=== PATIENT | female | born 1985 | race Two or more races ===

== ENCOUNTER 2021-11-03 03:30 | Emergency (ER) | payer OTHER | END 2021-11-03 04:15 | disposition left against medical advice (07) | LOC: ER 03:30 | DX: M54.9 Dorsalgia, unspecified (principal); R30.0 Dysuria; Z53.21 Procedure and treatment not carried out due to patient leaving prior to being seen by health care provider ==

== ENCOUNTER 2024-11-20 20:46 | Emergency (ER) | payer OTHER, MEDICAID ==
[~2024-11-20] VITALS: Ht 157.5 cm; Wt 92.7 kg
[2024-11-20 22:27] VITALS: BP 126/93; PULSE 96; RESP 17; TEMP 98; O2SAT 95
[2024-11-20] MEDS: KETOROLAC TROMETH 60MG/2ML VIAL IM ONE (22:27)
[2024-11-20 22:40] LABS: COVID19 ANTIGEN SOFIA FIA NEGATIVE (NEGATIVE)
[2024-11-20] MEDS: ONDANSETRON ODT 4 MG TAB PO ONE (22:53)
[2024-11-20] MEDS ORDERED: PROM1SOL4 PO (22:59)
--- NOTE | 2024-11-20 22:59 | ED.PDOC ---
Eye-HPI HPI Comments PT CAME TO THE ER WITH CC OF FLU LIKE SYMPTOMS, HEADACHE, RUNNY NOSE, DIARRHEA, BONE PAIN, PT IS A&OX4 RR EVEN AND REGULAR NO DISTRESS NOTED AT THIS TIME. PT DENIES N/V CP SOB Chief Complaint: Flu like Time Seen by MD: 20:55 Reviewed Notes: Nurses Notes, Medications, Allergies Home Meds Discontinued Scripts Promethazine-Dm (Promethazine Dm 6.25-15 mg/5Ml) 1 Lillie Lillie, 5 ML PO TID PRN for 5 Days, #75 ML Prov:JUAN JOSE CASEY PAN DEVULCANIZER HELPER 11/20/24 Information Source: Patient Mode of Arrival: Ambulatory Past Medical History PAST MEDICAL HISTORY: Denies Surgical History: Denies all surgeries INTERIOR DESIGN PROGRAM CHAIR History: No Pertinent INTERIOR DESIGN PROGRAM CHAIR History Family History Family History: Unknown Social History Smoker: Non-Smoker Alcohol: Denies ETOH Use Drugs: Denies Drug Use All Other Systems: Reviewed and Negative (SEE HPI) Physical Exam General Appearance: No Apparent Distress, Normal HEENT: Pharyngeal Erythema, TMs Normal Neck: Full Range of Motion, Non-Tender Respiratory: Lungs Clear, No Respiratory Distress, Normal Breath Sounds Cardiovascular: No Edema, No JVD, No Murmur, No Gallop, Normal Peripheral Pulses, Regular Rate/Rhythm Breast Exam: Deferred Gastrointestinal: No Organomegaly, Non Tender, No Pulsatile Mass, Normal Bowel Sounds, Soft Genitalia: Deferred Pelvic: Deferred Rectal: Deferred Extremities: Normal capillary refill, Normal range of motion, Non-tender, No pedal edema Musculoskeletal : Apperance: Normal Neurologic: Alert, No Motor Deficits, Normal Affect, Normal Mood, No Sensory Deficits Cerebellar Function: Normal Reflexes: NOT DONE Skin: Dry, Normal Color, Warm Lymphatic: No Adenopathy Was a procedure done? Was a procedure done?: No EENT DIFF Eye: N/A Ear: Otitis Media, Dental, Pharyngitis Sore Throat: Peritonsillar Abscess, Peritonsillar Cellulitis, Pharyngitis, Streptococcal, Viral Pharyngitis, URI X-Ray, Labs, Meds, VS Vital Signs Date Time Temp Pulse Resp B/P (MAP) Pulse Ox O2 Delivery O2 Flow Rate FiO2 11/20/24 22:27 98.0 96 17 126/93 (104) 95 98.0 11/20/24 22:27 96 17 95 Room Air 11/20/24 20:50 98.3 92 20 132/94 95 98.3 Lab Test 11/20/24 21:23 Range/Units SARS-CoV-2 Antigen (Rapid) Negative NEGATIVE X-Ray, Labs, Meds, VS Comment COVID NEGATIVE. Time of 1ST Reevaluation: 20:55 Reevaluation 1ST: Unchanged Time of 2ND Reevaluation: 22:54 Reevaluation 2ND: Improved Patient Education/Counseling: Diagnosis, Treatment, Prognosis, Need For Follow Up Family Education/Counseling: No Family Present SEPSIS Sepsis Screen Date sepsis recognized/suspect: Nov 20, 2024 Time Sepsis recognized/suspect: 2052 Recent Procedure: No On Antibiotic Therapy: No Respiratory Rate >20: No Heart Rate >90: Yes Temp<36 C (96.8 F) or >38.3 C: No SBP <90 or MAP <65 mmHG: No New Acute Mental Status Change: No Is the patient on CPAP, BIPAP,: No Vital Signs Date Time Temp Pulse Resp B/P (MAP) Pulse Ox O2 Delivery O2 Flow Rate FiO2 11/20/24 22:27 98.0 96 17 126/93 (104) 95 98.0 11/20/24 22:27 96 17 95 Room Air 11/20/24 20:50 98.3 92 20 132/94 95 98.3 Departure 1 Departure Time of Disposition: 22:57 Impression: Primary Impression: Viral syndrome Disposition: 01 HOME / SELF CARE / HOMELESS Condition: Stable Discharged With: Self Critical Care Note Critical Care Time?: No Stability Stability form required: JUAN JOSE Nava Nov 20, 2024 22:59
== END 2024-11-20 23:13 | disposition home or self-care (01) ==
LOC: ER 20:46
DX: B34.9 Viral infection, unspecified (principal); Z20.822 Contact with and (suspected) exposure to COVID-19
CPT/HCPCS: 36415; 87426; 96372; 99283; J1885; Q0162

== ENCOUNTER 2024-12-31 00:01 | Emergency (ER) | payer OTHER, MEDICAID ==
[~2024-12-31] VITALS: Ht 157.5 cm; Wt 92.5 kg
[2024-12-31 00:59] LABS: Hematocrit 39.6 % (36.0-46.0); Hemoglobin 13.3 g/dL (12.2-16.2); Mean Corpuscular Hemoglobin 28.0 pg (28.0-32.0); Mean Corpuscular Volume 83.2 fL (80.0-100.0); Nucleated Red Blood Cells % 0.0 %
[2024-12-31 01:05] LABS: Potassium 3.8 mmol/L (3.5-5.1); Sodium 140 mmol/L (136-145)
[2024-12-31 01:06] LABS: Anion Gap 9 (5-15); Carbon Dioxide 23 mmol/L (20-31)
[2024-12-31 01:09] LABS: Calcium 8.5 mg/dL (8.7-10.4); Chloride 108 mmol/L (98-107)
[2024-12-31 01:11] LABS: BUN/Creatinine Ratio 10.8 (10.0-20.0); Glucose 99 mg/dL (74-106)
[2024-12-31 01:26] LABS: Urine Protein, UAD Negative (Negative)
[2024-12-31 01:27] LABS: Blood Urea Nitrogen 7 mg/dL (9-23)
[2024-12-31] MEDS ORDERED: HYDR-4798 PO (02:23)
[2024-12-31] MEDS ORDERED: ZOFR4T PO (02:23)
--- NOTE | 2024-12-31 02:24 | ED.PDOC ---
History of Present Illness HPI Comments This patient is a pleasant but morbidly obese 39-year-old female who arrives the ED today for evaluation of headache concerns for the past four days. Patient states that her headache came on four days ago and has been relatively consistent. Patient describes the pain as being sharp and groaning as well as experiencing some photophobia. Patient states intermittent nausea. No vomiting. Patient denies any fever. Patient denies any history of migraine headaches. Chief Complaint: Headache Time Seen by MD: 00:09 Reviewed Notes: Nurses Notes Information Source: Patient Mode of Arrival: Ambulatory Severity: Moderate Timing: Days Duration: Since onset Prehospital treatment: Pain Meds Past Medical History PAST MEDICAL HISTORY: Denies Surgical History: Denies all surgeries GLIDING PILOT INSTRUCTOR History: No Pertinent GLIDING PILOT INSTRUCTOR History Family History Family History: Unknown Social History Smoker: Non-Smoker Alcohol: Denies ETOH Use Drugs: Denies Drug Use Lives In: Home Constitutional: denies: chills, diaphoresis, fatigue, fever, malaise, sweats, weakness, others EENTM: denies: blurred vision, double vision, ear bleeding, ear discharge, ear drainage, ear pain, ear ringing, eye pain, eye redness, hearing loss, mouth pain, mouth swelling, nasal discharge, nose bleeding, nose congestion, nose pain, photophobia, tearing, throat pain, throat swelling, voice changes, others Respiratory: denies: cough, hemoptysis, orthopnea, SOB at rest, shortness of breath, SOB with excertion, stridor, wheezing, others Cardiovascular: denies: chest pain, dizzy spells, diaphoresis, Dyspnea on exertion, edema, irregular heart beat, left arm pain, lightheadedness, palpitations, PND, syncope, others Gastrointestinal: denies: abdomen distended, abdominal pain, blood streaked bowels, constipated, diarrhea, dysphagia, difficulty swallowing, hematemesis, me chuy, nausea, poor appetite, poor fluid intake, rectal bleeding, rectal pain, vomiting, others Genitourinary: denies: abnormal vagina bleeding, burning, dyspareunia, dysuria, flank pain, frequency, hematuria, incontinence, pain, , vagina discharge, urgency, others Neurological: reports: headache; denies: dizziness, fainting, left sided numbness, left sided weakness, numbness, paresthesia, pre-existing deficit, right sided numbness, right sided weakness, seizure, speech problems, tingling, tremors, weakness, others Musculoskeletal: denies: back pain, gout, joint pain, joint swelling, muscle pain, muscle stiffness, neck pain, others Integumetry: denies: bruises, change in color, change in hair/nails, dryness, laceration, lesions, lumps, rash, wounds, others Allergic/Immunocompromised: denies: Difficulty Healing, Frequent Infections, Hives, Itching, others Hematologic/Lymphatic: denies: anemia, blood clots, easy bleeding, easy bruising, swollen glands, others Endocrine: denies: excessive hunger, excessive sweating, excessive thirst, excessive urination, flushing, intolerance to cold, intolerance to heat, unexplained weight gain, unexplained weight loss, others Psychiatric: denies: anxiety, bipolar disorder, depression, hopeless, panic disorder, schizophrenia, sleepless, suicidal, others Physical Exam General Appearance: Moderate Distress (Due to headache concerns), Obese HEENT: Head (Unremarkable cranial evaluation. No signs of trauma. No skull depression or deformity.), Pharynx Normal, TMs Normal, Other (Patient complains of photophobia) Neck: Full Range of Motion, Non-Tender, Normal, Normal Inspection Respiratory: Chest Non-Tender, Lungs Clear, No Accessory Muscle Use, No Respiratory Distress, Normal Breath Sounds Cardiovascular: No Edema, No JVD, No Murmur, No Gallop, Normal Peripheral Pulses, Regular Rate/Rhythm Breast Exam: Deferred Gastrointestinal: No Organomegaly, Non Tender, No Pulsatile Mass, Normal Bowel Sounds, Soft Genitalia: Deferred Pelvic: Deferred Rectal: Deferred Extremities: No calf tenderness, Normal inspection Neurologic: Alert Cerebellar Function: NOT DONE Reflexes: NOT DONE Skin: Dry, Normal Color, Warm Lymphatic: No Adenopathy Was a procedure done? Was a procedure done?: No Differential Dx Considerations may include: Sepsis, electrolyte abnormality, urinary tract infection, migraine headache, headache, viral illness X-Ray, Labs, Meds, VS Vital Signs Date Time Temp Pulse Resp B/P (MAP) Pulse Ox O2 Delivery O2 Flow Rate FiO2 12/31/24 00:03 97.5 82 18 142/92 98 97.5 Lab Test 12/31/24 00:46 12/31/24 00:37 Range/Units White Blood Count 11.0 H 4.4-10.8 10^3/uL Red Blood Count 4.76 4.0-5.20 10^6/uL Hemoglobin 13.3 12.2-16.2 g/dL Hematocrit 39.6 36.0-46.0 % Mean Corpuscular Volume 83.2 80.0-100.0 fL Mean Corpuscular Hemoglobin 28.0 28.0-32.0 pg Mean Corpuscular Hemoglobin Concent 33.6 32.0-36.0 g/dL Red Cell Distribution Width 13.4 11.8-14.3 % Platelet Count 368 140-450 10^3/uL Mean Platelet Volume 6.5 L 6.9-10.8 fL Neutrophils (%) (Auto) 63.3 37.0-80.0 % Lymphocytes (%) (Auto) 26.6 10.0-50.0 % Monocytes (%) (Auto) 6.9 0.0-12.0 % Eosinophils (%) (Auto) 2.7 0.0-7.0 % Basophils (%) (Auto) 0.5 0.0-2.0 % Neutrophils # (Auto) 6.9 1.6-8.6 10 ^3/uL Lymphocytes # (Auto) 2.9 0.4-5.4 10 ^3/uL Monocytes # (Auto) 0.8 0-1.3 10 ^3/uL Eosinophils # (Auto) 0.3 0-0.8 10 ^3/uL Basophils # (Auto) 0.1 0-0.2 10 ^3/uL Nucleated Red Blood Cells 0.0 % Sodium Level 140 136-145 mmol/L Potassium Level 3.8 3.5-5.1 mmol/L Chloride Level 108 H 98-107 mmol/L Carbon Dioxide Level 23 20-31 mmol/L Anion Gap 9 5-15 Blood Urea Nitrogen 7 L 9-23 mg/dL Creatinine 0.65 0.550-1.02 mg/dL Glomerular Filtration Rate Calc 115 >90 mL/min BUN/Creatinine Ratio 10.8 10.0-20.0 Serum Glucose 99 74-106 mg/dL Calcium Level 8.5 L 8.7-10.4 mg/dL Urine Color Light-yellow Yellow Urine Clarity Clear Clear Urine pH 6.5 5.0-9.0 Urine Specific [place] 1.018 1.001-1.035 Urine Protein Negative Negative Urine Ketones Negative Negative Urine Blood 2+ H Negative /uL Urine Nitrite Negative Negative Urine Bilirubin Negative Negative Urine Urobilinogen 2 H Negative mg/dL Urine Leukocyte Esterase Negative Negative /uL Urine RBC 2 0 - 4 /hpf Urine Microscopic WBC 2 0-5 /HPF Urine Squamous Epithelial Cells Few <5 /hpf Urine Bacteria None seen None Seen /hpf Urine Glucose Normal Normal mg/dL X-Ray, Labs, Meds, VS Comment All studies performed the ED were evaluated by me personally. Serum and and urinalysis were unremarkable for any systemic concerns. Patient responded reasonably well to medication dispensed. Advised patient to follow up with the primary care provider for discussions related to today's visit and possible additional consultation if headaches returned. Time of 1ST Reevaluation: :20 Reevaluation 1ST: Improved Consultation: PCP, Neurology Patient Education/Counseling: Diagnosis, Treatment Family Education/Counseling: Diagnosis, Treatment SEPSIS Sepsis Screen Date sepsis recognized/suspect: Dec 31, 2024 Time Sepsis recognized/suspect: 0007 Recent Procedure: No On Antibiotic Therapy: No Respiratory Rate >20: No Heart Rate >90: No Temp<36 C (96.8 F) or >38.3 C: No SBP <90 or MAP <65 mmHG: No New Acute Mental Status Change: No Is the patient on CPAP, BIPAP,: No Vital Signs Date Time Temp Pulse Resp B/P (MAP) Pulse Ox O2 Delivery O2 Flow Rate FiO2 12/31/24 00:03 97.5 82 18 142/92 98 97.5 Laboratory Tests Test 12/31/24 00:46 White Blood Count 11.0 10^3/uL (4.4-10.8) H Departure 1 Departure Time of Disposition: 02:20 Impression: Primary Impression: Headache Disposition: 01 HOME / SELF CARE / HOMELESS Condition: Stable Additional Instructions: Advised medication as needed for symptomatic relief. Patient should follow up with the primary care provider for discussions related to today's visit and possible neurologic referral and evaluation of what may be migraine headache concerns. e-Prescriptions Ondansetron Odt 4MG Tab (ZOFRAN PO) 4 Mg Tb 4 MG PO Q6HP PRN, #10 TAB ODT TAB-DISSOLVE IN MOUTH, THEN SWALLOW Prov: RIOS RAMIREZ PAC 12/31/24 Hydrocodone-Acetaminophen (Hydrocodone Bitartrate/AC 10-325 mg) 1 Tab Tab 1 TAB PO Q8HP PRN, #6 TAB Prov: RIOS RAMIREZ PAC 12/31/24 Discharged With: Self, Friend Critical Care Note Critical Care Time?: No Stability Stability form required: No Heart Score Heart Score: Heart Score Response (Comments) Value History N/A 0 EKG N/A 0 Age N/A 0 Risk Factors N/A 0 Troponin N/A 0 Total 0 RIOS RAMIREZ PAC Dec 31, 2024 02:24
[2024-12-31] MEDS: ONDANSETRON ODT 4 MG TAB PO ONE (02:31)
[2024-12-31] MEDS: SUMAtriptan SUCCINATE 6 MG/0.5 ML VL SC ONE (02:37)
[2024-12-31 02:40] VITALS: BP 138/76; PULSE 82; RESP 18; TEMP 98.2; O2SAT 97
== END 2024-12-31 03:11 | disposition home or self-care (01) ==
LOC: ER 00:01
DX: R51.9 Headache, unspecified (principal); E66.01 Morbid (severe) obesity due to excess calories; Z68.37 Body mass index [BMI] 37.0-37.9, adult
CPT/HCPCS: 36415; 80048; 81001; 85025; 96372; 99283; J3030; Q0162